=== PATIENT | female | born 1990 | race Two or more races ===

== ENCOUNTER 2021-04-12 23:00 | Inpatient (IN) | payer BC, MEDICAID ==
[~2021-04-12] VITALS: Ht 149.9 cm; Wt 81.8 kg
[2021-04-12] MEDS ORDERED: normal saline 1000ml 1,000 ML IV STA (23:08)
[2021-04-12 23:38] LABS: BASOPHILS % (AUTO) 0.3 % (0-1); EOSINOPHILS % (AUTO) 0.2 % (0-6); HEMATOCRIT 39.9 % (35.0-45.0); HEMOGLOBIN 13.1 g/dl (12.0-16.0); LYMPHOCYTES # (AUTO) 1.4 X10'3 (1.1-4.8); LYMPHOCYTES % (AUTO) 12.5 % (21-51); MEAN CORPUSCULAR HEMOGLOBIN 25.9 PG (27.0-31.0); MEAN CORPUSCULAR HGB CONC 32.9 g/dL (33.0-36.5); MEAN CORPUSCULAR VOLUME 78.8 FL (78-98); MEAN PLATELET VOLUME 8.4 FL (7.4-10.4); MONOCYTES # (AUTO) 0.6 X10'3 (0-0.9); MONOCYTES % (AUTO) 5.6 % (2-12); NEUTROPHILS # (AUTO) 9.4 X10'3 (1.8-7.7); NEUTROPHILS % (AUTO) 81.4 % (42-75); PLATELET COUNT 324 X10'3 (140-440); RED BLOOD COUNT 5.06 X10'6 (4.20-5.60); RED CELL DISTRIBUTION WIDTH 15.7 % (11.5-14.5); WHITE BLOOD COUNT 11.6 X10'3 (4.5-11.0)
[2021-04-13] MEDS ORDERED: morphine 4 MG/ML inj SYRINge IV ONE (00:05)
[2021-04-13 00:06] LABS: ALANINE AMINOTRANSFERASE 19 U/L (12-78); ALKALINE PHOSPHATASE 106 IU/L (46-116); ANION GAP 12 (8-16); ASPARTATE AMINO TRANSFERASE 16 U/L (10-37); BILIRUBIN,DIRECT 0.1 MG/DL (0-0.3); BILIRUBIN,TOTAL 0.4 MG/DL (0.1-1.0); BLOOD UREA NITROGEN 8 MG/DL (7-18); BUN/CREATININE RATIO 8.7 (6.6-38.0); CALCIUM 8.9 MG/DL (8.5-10.1); CHLORIDE 101 MMOL/L (99-107); CREATININE 0.92 MG/DL (0.40-0.90); GLUCOSE 131 MG/DL (70-104); LIPASE < 50 U/L (73-393); POTASSIUM 3.5 MMOL/L (3.5-5.1); SODIUM 137 MMOL/L (135-145); TOTAL CARBON DIOXIDE 24.4 MMOL/L (24-32); TOTAL PROTEIN 7.9 G/DL (6.4-8.2); eGFR 71 ML/MIN
--- NOTE | 2021-04-13 00:30 | NUR ---
Patient stating she hadn't urinated since this morning and endorsing abdominal pain. Doctor gave verbal order to insert snider catheter at this time. Snider inserted and approximately 1000mls of urine drained out.
[2021-04-13 01:53] LABS: CLARITY,URINE CLEAR (Clear); GLUCOSE, URINE NEGATIVE (Neg); KETONES,URINE NEGATIVE (Neg); LEUKOCYTE ESTERASE ,URINE NEGATIVE (Neg); NITRITES, URINE NEGATIVE (Neg); OCCULT BLOOD,URINE SMALL (Neg); PROTEIN,URINE NEGATIVE (Neg); URINE HCG NEGATIVE (NEG); UROBILINOGEN,URINE 0.2 E.U/dL (0.2-1.0)
[2021-04-13 01:54] LABS: COLOR,URINE STRAW (Yellow); UA COLLECTION TYPE NON-SPECIFIED
[2021-04-13 01:59] LABS: SQUAMOUS EPITHELIAL CELL,UR FEW /LPF (FEW)
[2021-04-13 02:00] LABS: BACTERIA,URINE NONE SEEN /HPF (Neg); RBC,URINE 0-2 /HPF (0-2); WBC,URINE 0-4 /HPF (0-4)
[2021-04-13] MEDS ORDERED: iohexol 300mg/ml 100ml inj. ONE (02:41)
--- NOTE | 2021-04-13 06:40 | NUR ---
Pt is resting and denies abd pain.
--- NOTE | 2021-04-13 06:45 | NUR ---
Artur garcia in [facility] - 04/13/21 at 0652 by WENDIE Pt want to make it to her class at [facility] at 0800.
[2021-04-13] MEDS ORDERED: normal saline 1000ml 1,000 ML IV ONE (10:50)
--- NOTE | 2021-04-13 15:15 | NUR ---
Dr. De La Torre in to see pt. He said that it is ok for pt to have ice chips.
[2021-04-13] MEDS ORDERED: mag hydrox/Alum hydrox/simeth 30ml oral suspension PO PRN (15:30)
[2021-04-13] MEDS ORDERED: potassium CL 10mEq/100ml bag 100 ML IV PRN (15:30)
[2021-04-13] MEDS ORDERED: magnesium 2GM in 50ml NS 50 ML IV PRN (15:30)
[2021-04-13] MEDS ORDERED: magnesium 4gm in 100ml NS 100 ML IV PRN (15:30)
[2021-04-13] MEDS ORDERED: acetaminophen 650mg rectal suppository RC PRN (15:30)
[2021-04-13] MEDS ORDERED: potassium Cl 20 mEq SR tablet PO PRN (15:30)
[2021-04-13] MEDS ORDERED: HYDROmorphone/PF 0.2 MG/ML SYRINGE IV PRN (15:30)
[2021-04-13] MEDS ORDERED: HYDROcodone/acetaminophen 5mg/325mg tablet PO PRN (15:30)
[2021-04-13] MEDS ORDERED: acetaminophen 325mg tablet PO PRN ×2 (15:30)
[2021-04-13] MEDS ORDERED: ondansetron 4mg rapidly disintigrating tab PO PRN (15:30)
[2021-04-13] MEDS ORDERED: magnesium Cl slow-release 64mg tablet PO PRN (15:30)
[2021-04-13] MEDS ORDERED: ondansetron/PF 4mg/2ml inj IV PRN (15:30)
[2021-04-13] MEDS ORDERED: magnesium hydroxide 30ml (MOM) UD suspension PO PRN (15:30)
[2021-04-13 16:18] LABS: MAGNESIUM 2.2 MG/DL (1.5-2.4)
[2021-04-13 16:21] LABS: APTT 26 SECONDS (22-32)
[2021-04-13] MEDS: normal saline 1000ml 1,000 ML IV SCH (16:33)
[2021-04-13] MEDS ORDERED: NO HOME MEDS (16:37)
[2021-04-13] MEDS: potassium Cl 20 mEq SR tablet PO PRN ×2 (17:00→21:51)
--- NOTE | 2021-04-13 19:43 | NUR ---
Attempted to call report to Surgical - Nurse unavailable at the moment, asked if I could call back in 10 minutes, will try again then.
[2021-04-13 20:00] VITALS: BP 122/87
[2021-04-13] MEDS: K and/or MAG REPLACEMENT MC SCH (20:00)
[2021-04-13] MEDS ORDERED: temazepam 15mg capsule PO PRN (21:00)
[2021-04-13] MEDS: docusate sod 100mg capsule PO SCH (21:43)
[2021-04-14] VITALS (22 sets, daily range): BP systolic 108–168; BP diastolic 66–105
[2021-04-14] MEDS: potassium Cl 20 mEq SR tablet PO PRN (01:24)
[2021-04-14] MEDS: normal saline 1000ml 1,000 ML IV SCH ×3 (01:30→19:40)
[2021-04-14 06:29] LABS: BASOPHILS % (AUTO) 0.3 % (0-1); EOSINOPHILS # (AUTO) 0.1 X10'3 (0-0.9); EOSINOPHILS % (AUTO) 1.5 % (0-6); HEMATOCRIT 35.2 % (35.0-45.0); HEMOGLOBIN 11.5 g/dl (12.0-16.0); LYMPHOCYTES % (AUTO) 29.2 % (21-51); MEAN CORPUSCULAR HGB CONC 32.7 g/dL (33.0-36.5); MEAN CORPUSCULAR VOLUME 79.4 FL (78-98); MEAN PLATELET VOLUME 8.6 FL (7.4-10.4); MONOCYTES # (AUTO) 0.5 X10'3 (0-0.9); MONOCYTES % (AUTO) 7.2 % (2-12); NEUTROPHILS # (AUTO) 4.2 X10'3 (1.8-7.7); NEUTROPHILS % (AUTO) 61.8 % (42-75); PLATELET COUNT 266 X10'3 (140-440); RED BLOOD COUNT 4.43 X10'6 (4.20-5.60); RED CELL DISTRIBUTION WIDTH 15.6 % (11.5-14.5); WHITE BLOOD COUNT 6.8 X10'3 (4.5-11.0)
--- NOTE | 2021-04-14 06:51 | NUR ---
hand off report given to Cal
[2021-04-14 06:59] LABS: ALANINE AMINOTRANSFERASE 17 U/L (12-78); ALKALINE PHOSPHATASE 88 IU/L (46-116); ANION GAP 10 (8-16); ASPARTATE AMINO TRANSFERASE 12 U/L (10-37); BILIRUBIN,TOTAL 0.3 MG/DL (0.1-1.0); BLOOD UREA NITROGEN 5 MG/DL (7-18); BUN/CREATININE RATIO 7.7 (6.6-38.0); CALCIUM 8.5 MG/DL (8.5-10.1); CHLORIDE 110 MMOL/L (99-107); CREATININE 0.65 MG/DL (0.40-0.90); GLUCOSE 100 MG/DL (70-104); MAGNESIUM 1.8 MG/DL (1.5-2.4); POTASSIUM 4.6 MMOL/L (3.5-5.1); SODIUM 144 MMOL/L (135-145); TOTAL CARBON DIOXIDE 24.5 MMOL/L (24-32); eGFR > 90 ML/MIN
--- NOTE | 2021-04-14 07:00 | NUR ---
Report received,questions answered plan of care reviewed with Sweta CUEVAS
[2021-04-14] MEDS: K and/or MAG REPLACEMENT MC SCH ×2 (08:00→20:00)
[2021-04-14] MEDS: docusate sod 100mg capsule PO SCH ×2 (08:08→20:00)
[2021-04-14] MEDS: HYDROmorphone inj. 0.5 MG/0.5 ML DISP.SYRIN IV PRN (11:05)
[2021-04-14] MEDS ORDERED: BUPIVAcaine/PF 2.5mg/ml (0.25%) 10ml vial ONE (12:59)
--- NOTE | 2021-04-14 12:59 | NUR ---
Patient report given to Arianne on surgical floor.
[2021-04-14] MEDS ORDERED: hydrALAZINE 20mg/ml inj. IV PRN (13:05)
[2021-04-14] MEDS ORDERED: fentaNYL/PF 50MCG/1 ML 2ML syringe IV PRN ×2 (13:05)
[2021-04-14] MEDS ORDERED: morphine 4 MG/ML inj SYRINge IV PRN (13:05)
[2021-04-14] MEDS ORDERED: ondansetron/PF 4mg/2ml inj IV PRN ×2 (13:05→14:55)
[2021-04-14] MEDS ORDERED: morphine 2 MG/ML inj. syringe IV PRN (13:05)
[2021-04-14] MEDS ORDERED: labetalol 20mg/4ml (5mg/ml) syringe IV PRN (13:05)
[2021-04-14] MEDS ORDERED: ringers solution, lacted 1,000 ML IV SCH (13:05)
[2021-04-14] MEDS ORDERED: ceFOXitin 2GM-NS 100mL ADDvant 100 ML IV ONE (13:10)
--- NOTE | 2021-04-14 13:30 | NUR ---
Patient went for surgery alert and oriented denied discomfort at this time, no SOB noted at this time.
[2021-04-14] MEDS ORDERED: rocuronium 10mg/ml inj IV ONE (13:36)
[2021-04-14] MEDS ORDERED: ondansetron/PF 4mg/2ml inj ONE (13:37)
[2021-04-14] MEDS ORDERED: LIDOcaine 2% (20mg/ml) 5ml vial ONE (13:37)
[2021-04-14] MEDS ORDERED: propofol inj 20 ML IV ONE (13:37)
[2021-04-14] MEDS ORDERED: midazolam 1 mg/ML 2ml injection ONE (13:37)
[2021-04-14] MEDS ORDERED: fentaNYL/PF 50MCG/1 ML 2ML syringe ONE (13:37)
[2021-04-14] MEDS ORDERED: dexamethasone sod phosphate 10mg/ml inj ONE (13:40)
[2021-04-14] MEDS ORDERED: sevoflurane 250ml liquid IH ONE (13:40)
[2021-04-14] MEDS ORDERED: ceFAZolin 1000mg inj ONE ×2 (13:52)
[2021-04-14] MEDS ORDERED: ketorolac trometh. 30mg/ml inj. ONE (14:48)
[2021-04-14] MEDS ORDERED: HYDROcodone/acetaminophen 5mg/325mg tablet PO PRN (14:55)
--- NOTE | 2021-04-14 14:55 | NUR ---
Received from OR via BED IN STABLE CONDITION , accompanied by Anesthesiologist and MANAGER PROCESS IMPROVEMENT report given by MANAGER PROCESS IMPROVEMENT AND Anesthesiolgist. Addendum: 04/14/21 at 1507 by Tatyana Gonzalez RN Amended: Links added.
--- NOTE | 2021-04-14 16:25 | NUR ---
PATIENT DISCHARGED FROM PACU IN STABLE CONDITION AFTER REPORT GIVEN TO RN TAKING OVER PATIENTS CARE. PATIENT TRANSPORTED TO ROOM 344B VIA BED WITH RN X2. Addendum: 04/14/21 at 1641 by Tatyana Gonzalez RN Amended: Links added.
--- NOTE | 2021-04-14 16:40 | NUR ---
[facility]. no distress noted at this time.
--- NOTE | 2021-04-14 17:51 | NUR ---
Patient stable no complaint voiced at this time.
--- NOTE | 2021-04-14 18:22 | NUR ---
Report GIVEN,questions answered plan of care reviewed with Alonso CUEVAS
--- NOTE | 2021-04-14 18:24 | NUR ---
Patient in room [facility] 344B. I have received report from Hero CUEVAS and had the opportunity to ask questions and assume patient care.
--- NOTE | 2021-04-14 18:24 | NUR ---
Report GIVEN,questions answered plan of care reviewed with Lala CUEVAS
[2021-04-14] MEDS: HYDROcodone/acetaminophen 10/325mg tab PO PRN (19:42)
[2021-04-15] VITALS: BP 122/84
[2021-04-15] MEDS: HYDROcodone/acetaminophen 10/325mg tab PO PRN ×2 (01:18→19:52)
[2021-04-15] MEDS: normal saline 1000ml 1,000 ML IV SCH ×2 (05:17→17:25)
--- NOTE | 2021-04-15 05:39 | NUR ---
Patient addressed concerns regarding going home to follow up with OBGYN regarding uterine fibroid. States that she would like to seek care regarding the fibroid here.
--- NOTE | 2021-04-15 06:08 | NUR ---
Problems reprioritized. Patient report given, questions answered & plan of care reviewed with Hero CUEVAS.
--- NOTE | 2021-04-15 06:27 | NUR ---
Report received,questions answered plan of care reviewed with Lala CUEVAS
[2021-04-15 06:53] LABS: BASOPHILS % (AUTO) 0.1 % (0-1); EOSINOPHILS % (AUTO) 0 % (0-6); HEMATOCRIT 33.1 % (35.0-45.0); HEMOGLOBIN 11.1 g/dl (12.0-16.0); LYMPHOCYTES # (AUTO) 1.7 X10'3 (1.1-4.8); LYMPHOCYTES % (AUTO) 13.6 % (21-51); MEAN CORPUSCULAR HEMOGLOBIN 26.3 PG (27.0-31.0); MEAN CORPUSCULAR HGB CONC 33.5 g/dL (33.0-36.5); MEAN CORPUSCULAR VOLUME 78.4 FL (78-98); MEAN PLATELET VOLUME 8.8 FL (7.4-10.4); MONOCYTES # (AUTO) 0.6 X10'3 (0-0.9); MONOCYTES % (AUTO) 4.8 % (2-12); NEUTROPHILS # (AUTO) 10.2 X10'3 (1.8-7.7); NEUTROPHILS % (AUTO) 81.5 % (42-75); PLATELET COUNT 275 X10'3 (140-440); RED BLOOD COUNT 4.22 X10'6 (4.20-5.60); RED CELL DISTRIBUTION WIDTH 14.7 % (11.5-14.5); WHITE BLOOD COUNT 12.5 X10'3 (4.5-11.0)
[2021-04-15 06:58] LABS: ALANINE AMINOTRANSFERASE 48 U/L (12-78); ALBUMIN 2.7 G/DL (3.4-5.0); ALBUMIN/GLOBULIN RATIO 0.9 (1.1-1.5); ALKALINE PHOSPHATASE 81 IU/L (46-116); ANION GAP 10 (8-16); ASPARTATE AMINO TRANSFERASE 44 U/L (10-37); BILIRUBIN,TOTAL 0.3 MG/DL (0.1-1.0); BLOOD UREA NITROGEN 6 MG/DL (7-18); BUN/CREATININE RATIO 10.7 (6.6-38.0); CHLORIDE 108 MMOL/L (99-107); CREATININE 0.56 MG/DL (0.40-0.90); GLUCOSE 109 MG/DL (70-104); MAGNESIUM 1.8 MG/DL (1.5-2.4); POTASSIUM 4.1 MMOL/L (3.5-5.1); SODIUM 142 MMOL/L (135-145); TOTAL CARBON DIOXIDE 24.5 MMOL/L (24-32); TOTAL PROTEIN 5.8 G/DL (6.4-8.2); eGFR > 90 ML/MIN
[2021-04-15] MEDS ORDERED: LORazepam 0.5 MG tablet PO PRN (07:20)
[2021-04-15] MEDS: docusate sod 100mg capsule PO SCH ×2 (07:39→19:51)
[2021-04-15] MEDS: HYDROmorphone inj. 0.5 MG/0.5 ML DISP.SYRIN IV PRN (07:39)
[2021-04-15] MEDS: K and/or MAG REPLACEMENT MC SCH ×2 (07:45→20:00)
[2021-04-15] MEDS ORDERED: magnesium hydroxide 30ml (MOM) UD suspension PO PRN (13:35)
[2021-04-15 16:57] VITALS: BP 102/54
[2021-04-15 18:00] VITALS: BP 128/84
--- NOTE | 2021-04-15 18:17 | NUR ---
Problems reprioritized. Patient report given, questions answered & plan of care reviewed with Lala CUEVAS
--- NOTE | 2021-04-15 18:37 | NUR ---
Patient in room [facility] 344. I have received report from Hero CUEVAS and had the opportunity to ask questions and assume patient care.
[2021-04-16] VITALS: BP 124/84
[2021-04-16] MEDS ORDERED: piperacillin/tazo 3.375gm/50ml 50 ML IV SCH
[2021-04-16] MEDS: normal saline 1000ml 1,000 ML IV SCH (00:06)
--- NOTE | 2021-04-16 06:32 | NUR ---
Patient in room [facility] 344. I have received report from TOMASZ CUEVAS and had the opportunity to ask questions and assume patient care.
--- NOTE | 2021-04-16 06:32 | NUR ---
Problems reprioritized. Patient report given, questions answered & plan of care reviewed with Hero CUEVAS.
[2021-04-16 08:28] LABS: ALANINE AMINOTRANSFERASE 51 U/L (12-78); ALBUMIN 2.7 G/DL (3.4-5.0); ALKALINE PHOSPHATASE 74 IU/L (46-116); ANION GAP 9 (8-16); ASPARTATE AMINO TRANSFERASE 26 U/L (10-37); BASOPHILS % (AUTO) 0.5 % (0-1); BILIRUBIN,TOTAL 0.2 MG/DL (0.1-1.0); BLOOD UREA NITROGEN 8 MG/DL (7-18); BUN/CREATININE RATIO 13.3 (6.6-38.0); CALCIUM 7.4 MG/DL (8.5-10.1); CHLORIDE 108 MMOL/L (99-107); EOSINOPHILS # (AUTO) 0.1 X10'3 (0-0.9); EOSINOPHILS % (AUTO) 0.7 % (0-6); GLUCOSE 85 MG/DL (70-104); HEMATOCRIT 32.1 % (35.0-45.0); HEMOGLOBIN 10.6 g/dl (12.0-16.0); LYMPHOCYTES # (AUTO) 3.3 X10'3 (1.1-4.8); MAGNESIUM 1.9 MG/DL (1.5-2.4); MEAN CORPUSCULAR HEMOGLOBIN 26.1 PG (27.0-31.0); MEAN CORPUSCULAR HGB CONC 32.9 g/dL (33.0-36.5); MEAN CORPUSCULAR VOLUME 79.2 FL (78-98); MEAN PLATELET VOLUME 8.6 FL (7.4-10.4); MONOCYTES # (AUTO) 0.5 X10'3 (0-0.9); MONOCYTES % (AUTO) 5.6 % (2-12); NEUTROPHILS # (AUTO) 4.6 X10'3 (1.8-7.7); NEUTROPHILS % (AUTO) 54.2 % (42-75); PLATELET COUNT 250 X10'3 (140-440); POTASSIUM 3.9 MMOL/L (3.5-5.1); RED BLOOD COUNT 4.05 X10'6 (4.20-5.60); RED CELL DISTRIBUTION WIDTH 15.3 % (11.5-14.5); SODIUM 142 MMOL/L (135-145); TOTAL CARBON DIOXIDE 25.4 MMOL/L (24-32); TOTAL PROTEIN 5.5 G/DL (6.4-8.2); WHITE BLOOD COUNT 8.5 X10'3 (4.5-11.0); eGFR > 90 ML/MIN
[2021-04-16] MEDS: HYDROmorphone inj. 0.5 MG/0.5 ML DISP.SYRIN IV PRN (11:05)
--- NOTE | 2021-04-16 12:14 | NUR ---
Patient discharged home alert and oriented, no SOB noted at this time.
== END 2021-04-16 12:14 | disposition home or self-care (01) | DRG 419 ==
LOC: ER 23:02 → ED HOLD 04-13 15:31 → SUR 3N 04-13 20:25
PROVIDERS: ADMIT Family Medicine; ATTEND Family Medicine
PROC: BW211ZZ Computerized Tomography (CT Scan) of Abdomen and Pelvis using Low Osmolar Contrast (ICD-10-PCS; 2021-04-13)
PROC: 0FT44ZZ Resection of Gallbladder, Percutaneous Endoscopic Approach (ICD-10-PCS; principal; 2021-04-14 13:40)
DX: K80.01 Calculus of gallbladder with acute cholecystitis with obstruction (principal); N13.9 Obstructive and reflux uropathy, unspecified; Z20.822 Contact with and (suspected) exposure to COVID-19; K59.00 Constipation, unspecified; E66.9 Obesity, unspecified; D25.9 Leiomyoma of uterus, unspecified; K82.8 Other specified diseases of gallbladder; Z83.3 Family history of diabetes mellitus; Z68.36 Body mass index [BMI] 36.0-36.9, adult
CPT/HCPCS: 99285; Z7506; Z7508; 36415; 74177; 76700; 76856; 80048; 80053; 80076; 81001; 81025; 82948; 83690; 83735; 84132; 85025; 85610; 85730; 87081; 87635; 93976; A4215; A4618; A7000; C9803; G0378; J0690; J0694; J1100; J1170; J1885; J2250; J2270; J2405; J2543; J2704; J3010; J3490; J7030; J7120; Q9967